=== PATIENT | male | born 1935 | race Two or more races ===

== ENCOUNTER 2024-03-14 10:19 | Inpatient (IN) | payer MEDICARE, OTHER ==
[~2024-03-14] VITALS: Ht 172.7 cm; Wt 74.8 kg
[2024-03-14] MEDS: ONDANSETRON HCL/PF 4 MG/2 ML VIAL IVP ONE (11:00)
[2024-03-14] MEDS ORDERED: ONDANSETRON HCL/PF 4 MG/2 ML VIAL ONE (11:04)
[2024-03-14] MEDS: PANTOPRAZOLE 80 MG in IV NS 0.9% 100 ML IV ONE (11:05)
[2024-03-14 11:09] LABS: BASOPHILS # (AUTO) 0.1 K/uL (0.0-0.2); BASOPHILS % (AUTO) 0.9 % (0.0-2.0); EOSINOPHILS # (AUTO) 0.4 K/uL (0.0-0.7); HEMATOCRIT 40 % (39-51); HEMOGLOBIN 13.2 g/dL (13.5-17.5); LYMPHOCYTES # (AUTO) 1.4 K/uL (0.8-4.8); LYMPHOCYTES % (AUTO) 12.6 % (20.0-44.0); MEAN CORPUSCULAR HEMOGLOBIN 31 PG (26.0-33.0); MEAN CORPUSCULAR HGB CONC 33 g/dl (31.0-36.0); MEAN CORPUSCULAR VOLUME 93 fL (80-96); MONOCYTES # (AUTO) 0.8 K/uL (0.1-1.30); MONOCYTES % (AUTO) 7.2 % (2.0-12.0); NEUTROPHILS # (AUTO) 8.2 K/uL (1.8-8.9); NEUTROPHILS % (AUTO) 75.3 % (43.0-81.0); PLATELET COUNT (AUTO) 200 K/uL (150-450); RED BLOOD CELL COUNT(AUTO) 4.32 MIL/uL (4.5-6.0); RED CELL DISTRIBUTION WIDTH 14.2 % (11.5-15.0); WHITE BLOOD COUNT (AUTO) 10.8 K/uL (4.3-11.0)
[2024-03-14] MEDS ORDERED: FURO-144 PO (11:10)
[2024-03-14] MEDS ORDERED: ERGO500093 PO (11:10)
[2024-03-14] MEDS ORDERED: POTASSIUM CHLORIDE PO (11:10)
[2024-03-14] MEDS ORDERED: MAGN400O6 PO (11:10)
[2024-03-14] MEDS ORDERED: MAG-5 PO (11:10)
[2024-03-14] MEDS ORDERED: ESCI10TA PO (11:10)
[2024-03-14] MEDS ORDERED: NA P133E RC (11:10)
[2024-03-14] MEDS ORDERED: PANT40TA2 PO (11:10)
[2024-03-14] MEDS ORDERED: LEVO25TA7 PO (11:10)
[2024-03-14] MEDS ORDERED: ACET-868 PO (11:10)
[2024-03-14] MEDS ORDERED: MELA5TAB PO (11:10)
[2024-03-14] MEDS ORDERED: ATOR40TA PO (11:10)
[2024-03-14] MEDS ORDERED: ASPI-1169 PO (11:10)
[2024-03-14] MEDS ORDERED: CALC-1257 PO (11:10)
[2024-03-14] MEDS ORDERED: BISA10SU11 RC (11:10)
[2024-03-14] MEDS ORDERED: HYDR-500 PO (11:10)
[2024-03-14] MEDS ORDERED: TAMS-12 PO (11:10)
[2024-03-14] MEDS ORDERED: OLAN2.5T3 PO (11:10)
[2024-03-14 11:15] LABS: CALCIUM, SERUM 8.9 mg/dL (8.5-10.1); CARBON DIOXIDE 31 mmol/L (21-32); CHLORIDE 106 mmol/L (98-107); CREATININE 0.8 mg/dL (0.6-1.3); GLUCOSE 129 mg/dL (74-106); POTASSIUM 4.6 mmol/L (3.5-5.1); SODIUM SERUM 143 mmol/L (136-145); UREA NITROGEN, BLOOD 22 mg/dL (7-18)
[2024-03-14 11:20] LABS: INR 1.02 (0.91-1.10); PARTIAL THROMBOPLASTIN TIME 23.7 SEC (24.3-34.3); PROTHROMBIN TIME 10.8 SECS (9.2-11.1)
[2024-03-14 11:21] LABS: ALANINE AMINOTRANSFERASE 18 U/L (12-78); ALBUMIN 3.1 g/dL (3.4-5.0); ALKALINE PHOSPHATASE 88 U/L (46-116); ASPARTATE AMINOTRANSFERASE 14 U/L (15-37); BILIRUBIN,DIRECT 0.1 mg/dL (0.0-0.2); BILIRUBIN,TOTAL 0.5 mg/dL (0.2-1.0); LIPASE 82 U/L (16-77); TOTAL PROTEIN, SERUM 6.5 g/dL (6.4-8.2)
[2024-03-14] MEDS ORDERED: ACETAMINOPHEN 325 MG TABLET PO PRN (12:00)
[2024-03-14] MEDS ORDERED: ONDANSETRON HCL/PF 4 MG/2 ML VIAL IVP PRN (12:00)
[2024-03-14] MEDS ORDERED: Z GUARD REMEDY 4 OZ OINT TP PRN (12:00)
[2024-03-14] MEDS: PANTOPRAZOLE 80 MG in IV NS 0.9% 500 ML IV ONE (12:15)
[2024-03-14] MEDS: IV 1/2NS 1000 ML 1,000 ML IV PRN (16:46)
[2024-03-14] MEDS: PANTOPRAZOLE 80 MG in IV NS 0.9% 500 ML IV PRN (22:17)
[2024-03-14] MEDS ORDERED: OCTREOTIDE IJ ONE (22:30)
[2024-03-14] MEDS ORDERED: NS 0.9% IJ ONE (22:30)
[2024-03-14] MEDS ORDERED: OCTREOTIDE 1,250 MCG in IV NS 0.9% 247.5 ML IV PRN (22:30)
[2024-03-14] MEDS ORDERED: OCTREOTIDE 500 MCG/ML VIAL ONE (23:36)
[2024-03-15] VITALS: BP 146/76; TEMP 98.2; O2SAT 95
[2024-03-15] MEDS: OCTREOTIDE 50 MCG/ML AMPUL IV ONE (00:05)
[2024-03-15] MEDS: OCTREOTIDE 1,250 MCG in IV NS 0.9% 247.5 ML IV PRN (00:10)
[2024-03-15 04:00] VITALS: BP 130/74; TEMP 98; O2SAT 95
[2024-03-15 04:10] LABS: APPEARANCE,URINE CLEAR (CLEAR); BILIRUBIN,URINE NEGATIVE (NEGATIVE); BLOOD, URINE NEGATIVE Ery/uL (NEGATIVE); COLOR,URINE YELLOW (YELLOW); KETONES,URINE NEGATIVE (NEGATIVE); LEUKOCYTE ESTERASE ,URINE NEGATIVE (NEGATIVE); NITRITE, URINE NEGATIVE (NEGATIVE); PROTEIN,URINE TRACE mg/dl (NEGATIVE); UGLUCOSE NEGATIVE (NEGATIVE); UROBILINOGEN,URINE 0.2 EU/dL (0.2)
[2024-03-15 04:13] LABS: ADD URINE CULTURE NO; BACTERIA,URINE Rare /HPF (None Seen); SQUAMOUS EPITHELIAL CELL,UR None Seen /HPF (None Seen); WBC,URINE 0-2 /HPF (0-3)
[2024-03-15] MEDS: SUCRALFATE 1 G/10 ML UDC GT SCH (07:30)
[2024-03-15 08:00] VITALS: BP 157/66; TEMP 97.8; O2SAT 99
[2024-03-15 09:23] LABS: BASOPHILS % (AUTO) 0.5 % (0.0-2.0); EOSINOPHILS # (AUTO) 0.5 K/uL (0.0-0.7); EOSINOPHILS % (AUTO) 7.8 % (0.0-6.0); HEMATOCRIT 41 % (39-51); LYMPHOCYTES # (AUTO) 1.3 K/uL (0.8-4.8); LYMPHOCYTES % (AUTO) 19.9 % (20.0-44.0); MEAN CORPUSCULAR HEMOGLOBIN 31 PG (26.0-33.0); MEAN CORPUSCULAR HGB CONC 32 g/dl (31.0-36.0); MEAN CORPUSCULAR VOLUME 96 fL (80-96); MONOCYTES # (AUTO) 0.5 K/uL (0.1-1.30); MONOCYTES % (AUTO) 7.5 % (2.0-12.0); NEUTROPHILS # (AUTO) 4.3 K/uL (1.8-8.9); NEUTROPHILS % (AUTO) 64.3 % (43.0-81.0); PLATELET COUNT (AUTO) 177 K/uL (150-450); RED BLOOD CELL COUNT(AUTO) 4.24 MIL/uL (4.5-6.0); RED CELL DISTRIBUTION WIDTH 14.3 % (11.5-15.0); WHITE BLOOD COUNT (AUTO) 6.7 K/uL (4.3-11.0)
[2024-03-15 09:41] LABS: CALCIUM, SERUM 8.7 mg/dL (8.5-10.1); CARBON DIOXIDE 24 mmol/L (21-32); CHLORIDE 107 mmol/L (98-107); CREATININE 0.9 mg/dL (0.6-1.3); GLUCOSE 95 mg/dL (74-106); MAGNESIUM 2.3 mg/dL (1.8-2.4); PHOSPHORUS 3.3 mg/dL (2.5-4.9); POTASSIUM 4.3 mmol/L (3.5-5.1); SODIUM SERUM 142 mmol/L (136-145); UREA NITROGEN, BLOOD 17 mg/dL (7-18)
[2024-03-15 12:00] VITALS: BP 90/68; TEMP 98.3; O2SAT 99
[2024-03-15] MEDS: PANTOPRAZOLE 80 MG in IV NS 0.9% 500 ML IV SCH (13:56)
[2024-03-15 16:00] VITALS: BP 161/97; TEMP 97.9; O2SAT 93
[2024-03-15 20:00] VITALS: BP 147/73; TEMP 98; O2SAT 95
[2024-03-15] MEDS ORDERED: OCTREOTIDE 1,250 MCG in IV NS 0.9% 247.5 ML IV SCH (20:00)
[2024-03-16] VITALS: BP 139/81; TEMP 97.9; O2SAT 98
[2024-03-16 04:00] VITALS: BP 139/81; TEMP 97.9; O2SAT 98
[2024-03-16 08:30] VITALS: BP 172/72; TEMP 98.3; O2SAT 92
[2024-03-16] MEDS ORDERED: Medication Not On Formulary EA (Melatonin 5 MG) PO PRN (10:30)
[2024-03-16] MEDS: ESCITALOPRAM OXALATE (10 MG) 10 MG TABLET PO SCH (12:09)
[2024-03-16 12:28] VITALS: BP 171/71; TEMP 97.9; O2SAT 97
[2024-03-16] MEDS: ERGOCALCIFEROL (VITAMIN D 2) 50,000 UNIT CAPSULE PO SCH (13:59)
[2024-03-16 16:13] VITALS: BP 180/81; TEMP 97.7; O2SAT 95
[2024-03-16] MEDS: hydrALAZINE HCL 50 MG TABLET PO SCH (17:00)
[2024-03-16 20:00] VITALS: BP 146/63; TEMP 98.8; O2SAT 96
[2024-03-16] MEDS: ATORVASTATIN 40 MG TABLET PO SCH (21:05)
[2024-03-16] MEDS: OLANZAPINE 2.5 MG TABLET PO SCH (21:05)
[2024-03-16] MEDS: TAMSULOSIN 0.4 MG CAP.SR.24H PO SCH (21:05)
[2024-03-17] VITALS: BP 165/85; TEMP 98.6; O2SAT 99
[2024-03-17] MEDS: ZOLPIDEM TARTRATE 5 MG TABLET PO PRN (00:21)
[2024-03-17 04:00] VITALS: BP 166/76; TEMP 98.1; O2SAT 100
[2024-03-17 08:00] VITALS: BP 174/73; TEMP 97.9; O2SAT 100
[2024-03-17] MEDS: SUCRALFATE 1 G TABLET GT SCH (08:53)
[2024-03-17] MEDS: LEVOTHYROXINE SODIUM 25 MCG TABLET PO SCH (08:54)
[2024-03-17] MEDS: FUROSEMIDE 40 MG TABLET PO SCH (08:54)
[2024-03-17] MEDS: AMLODIPINE BESYLATE 5 MG TABLET PO SCH (08:54)
[2024-03-17 14:00] VITALS: BP 117/44; TEMP 97.7; O2SAT 100
[2024-03-17 20:00] VITALS: BP 142/65; TEMP 98.9; O2SAT 97
[2024-03-18 04:00] VITALS: BP 139/70; TEMP 98.9; O2SAT 97
[2024-03-18] MEDS: PANTOPRAZOLE 40 MG VIAL IV SCH (08:54)
[2024-03-18] MEDS ORDERED: AMLO-212 PO (10:49)
[2024-03-18] MEDS ORDERED: PANT40TA2 PO (10:49)
[2024-03-18 12:00] VITALS: BP 140/73; TEMP 97.7; O2SAT 96
[2024-03-18 13:00] VITALS: BP 98/85
== END 2024-03-18 13:59 | DRG 377 ==
LOC: ER 10:48 → MEDSG1 12:52 → TELE1 16:55 → MEDSG1 03-17 11:03
PROVIDERS: ADMIT Internal Medicine; ATTEND Internal Medicine
PROC: 0H9MXZZ Drainage of Right Foot Skin, External Approach (ICD-10-PCS; principal; 2024-03-18)
DX: K29.71 Gastritis, unspecified, with bleeding (principal); K85.90 Acute pancreatitis without necrosis or infection, unspecified; D62 Acute posthemorrhagic anemia; K21.01 Gastro-esophageal reflux disease with esophagitis, with bleeding; E03.9 Hypothyroidism, unspecified; E78.5 Hyperlipidemia, unspecified; F03.90 Unspecified dementia, unspecified severity, without behavioral disturbance, psychotic disturbance, mood disturbance, and anxiety; I50.9 Heart failure, unspecified; M24.562 Contracture, left knee; M24.561 Contracture, right knee; S90.521A Blister (nonthermal), right ankle, initial encounter; X58.XXXA Exposure to other specified factors, initial encounter; Y93.9 Activity, unspecified; Y92.129 Unspecified place in nursing home as the place of occurrence of the external cause; I11.0 Hypertensive heart disease with heart failure; N40.0 Benign prostatic hyperplasia without lower urinary tract symptoms; S80.821A Blister (nonthermal), right lower leg, initial encounter
CPT/HCPCS: 36415; 71045-TC; 80048-TC; 80076-TC; 81001; 83690-TC; 83735-TC; 84100-TC; 84484-TC; 85025-TC; 85730-TC; 86850-TC; 87081-TC; 87086-TC; A4223; G0378; J2354; J2405; J2470; J2704; J3490; J7030; J7040; J7050